=== PATIENT | male | born 1985 | race African-American/Black ===

== ENCOUNTER 2017-08-17 14:22 | Emergency (ER) | payer OTHER ==
[2017-08-17 14:28] VITALS: BP 166/100
[2017-08-17] MEDS ORDERED: DEXAMETHASONE 10 MG/ML VIAL PO STA (15:28)
--- NOTE | 2017-08-17 15:58 | ED Physician Documentation ---
History of Present Illness - Stated complaint Stated Complaint: BILAT EYE PX - Chief complaint Chief Complaint: Heent - Additonal information Additional information: hx from pt healthy 32 male seasonal allergies very severe - congestion eye swelling soa tried dayquil nyquil vitamins lulú tea argon oil s relief Review of Systems Constitutional: denies: Fever Eyes: reports: Other (eyelid swelling) Nose: reports: Congestion Respiratory: reports: Dyspnea Immunocompromised: denies: Immunocompromised PD PAST MEDICAL HISTORY - Past Medical History Past Medical History: Yes Cardiovascular: Hypertension Respiratory: Asthma - Past Surgical History Past Surgical History: No - Present Medications Home Medications: Ambulatory Orders Medication Instructions Recorded Confirmed Albuterol 2 puffs PO PRN PRN 08/17/17 08/17/17 Fluticasone [Flonase] 1 sprays TREVA BID PRN #1 bottle 08/17/17 Loratadine [Claritin] 10 mg PO DAILY PRN #30 tablet 08/17/17 Olopatadine HCl [Patanol] 1 drops OP BID PRN #1 bottle 08/17/17 - Allergies Allergies/Adverse Reactions: Allergies Allergy/AdvReac Type Severity Reaction Status Date / Time peanut Allergy Anaphylaxis Verified 08/17/17 14:28 - Social History Does the pt smoke?: No Smoking Status: Never smoker Does the pt drink ETOH?: Yes ETOH Use: Wine, Beer Does the pt have substance abuse?: No - Immunizations Immunizations are current?: Yes - POLST Patient has POLST: No PD ED PE NORMAL - Vitals Vital signs reviewed: Yes - HEENT HEENT: PERRL (eyelid edema s erythema or infection), Ears normal, Moist mucous membranes, Other (nasal congestion) - Cardiac Cardiac: RRR - Respiratory Respiratory: No respiratory distress, Clear bilaterally, Other (no wheeze) - Derm Derm: Normal color Results - Vitals Vitals: Vital Signs - 24 hr 08/17/17 14:22 Temperature 36.4 C L Heart Rate 83 Respiratory 18 Rate Blood Pressure 166/100 H O2 Saturation 97 Departure - Departure Disposition: 01 Home, Self Care Clinical Impression: Allergic conjunctivitis and rhinitis Qualifiers: Laterality: bilateral Qualified Code(s): H10.13 - Acute atopic conjunctivitis, bilateral; J30.9 - Allergic rhinitis, unspecified; J30.9 - Allergic rhinitis, unspecified Condition: Good Instructions: ED Allergy Seasonal, ED Allergic Conjunctivitis Prescriptions: Fluticasone [Flonase] 1 sprays TREVA BID PRN #1 bottle PRN Reason: allergies Loratadine [Claritin] 10 mg PO DAILY PRN #30 tablet PRN Reason: seasonal allergies Olopatadine HCl [Patanol] 1 drops OP BID PRN #1 bottle PRN Reason: eye allergies Comments: The dose of steroids in the ER should help improve the symptoms quickly. Then maintain with flonase nasal spray, patanol eye drops and claritin Please get your blood pressure rechecked - it was high today
== END 2017-08-17 16:12 | disposition home or self-care (01) ==
LOC: ED 14:22
DX: H10.13 Acute atopic conjunctivitis, bilateral (principal); J30.9 Allergic rhinitis, unspecified; I10 Essential (primary) hypertension
CPT/HCPCS: 99283

== ENCOUNTER 2018-11-08 02:27 | Outpatient (CLI) | payer OTHER | END 2018-11-08 02:28 | disposition critical access hospital (66) | LOC: EMS 02:27 | PROVIDERS: ATTEND Surgery | DX: H57.13 Ocular pain, bilateral (principal); H53.8 Other visual disturbances | CPT/HCPCS: A0425; A0429 ==

== ENCOUNTER 2018-11-08 02:44 | Emergency (ER) | payer OTHER ==
[2018-11-08 02:56] VITALS: BP 191/114
[2018-11-08] MEDS ORDERED: PROPARACAINE 0.5% OPHTH DROPS 15 ML EACHEYE STA (02:56)
--- NOTE | 2018-11-08 03:55 | ED Physician Documentation ---
PD HPI OPHTHO - Stated complaint Stated Complaint: EYE PAIN - Chief complaint Chief Complaint: Heent - History obtained from History obtained from: Patient - History of Present Illness Timing - onset: Enter time (20:00), Today Timing - details: Gradual onset, Still present, Constant Pain level now: 8 Location: Both Quality / character: Burning, Aching Associated symptoms: Redness, Tearing, FB sensation, Photophobia Contributing factors: UV light (welding etc). No: Wears glasses, Wears contacts Similar symptoms before: Has not had sx before Recently seen: Not recently seen - Additional information Additional information: Patient was walking on [employer] all day without eye protection (sunglasses). By 8 PM tonight, noted gradual onset bilateral eye pain, redness, and tearing; symptoms have steadily progressed and pain is now severe. Denies h/o similar symptoms Review of Systems Eyes: reports: Photophobia, Irritation. denies: Loss of vision, Decreased vision Neurologic: denies: Headache PD PAST MEDICAL HISTORY - Past Medical History Cardiovascular: Hypertension Respiratory: Asthma - Past Surgical History Past Surgical History: No - Present Medications Home Medications: Ambulatory Orders Medication Instructions Recorded Confirmed Albuterol 2 puffs PO PRN PRN 08/17/17 08/17/17 Fluticasone [Flonase] 1 sprays TREVA BID PRN #1 bottle 08/17/17 Loratadine [Claritin] 10 mg PO DAILY PRN #30 tablet 08/17/17 Olopatadine HCl [Patanol] 1 drops OP BID PRN #1 bottle 08/17/17 Erythromycin Base [Erythromycin 1 applic EACHEYE BID #1 oint...g. 11/08/18 Ophthalmic Ointment] Oxycodone HCl/Acetaminophen 1 - 2 each PO Q6H PRN #14 tablet 11/08/18 [Percocet 5-325 mg Tablet] - Allergies Allergies/Adverse Reactions: Allergies Allergy/AdvReac Type Severity Reaction Status Date / Time peanut Allergy Anaphylaxis Verified 08/17/17 14:28 - Social History Does the pt smoke?: No Smoking Status: Never smoker Does the pt drink ETOH?: Yes Does the pt have substance abuse?: No - Immunizations Immunizations are current?: Yes - POLST Patient has POLST: No PD ED PE NORMAL - Vitals Vital signs reviewed: Yes - General General: Alert and oriented X 3, Well developed/nourished, Other (appears uncomfortable due to pain; keeps eyes closed for comfort except during exam) - HEENT HEENT: PERRDarrian EOMI PD ED PE EXPANDED - Eyes Eyes: Both eyes, Normal eyelids, Injected conj/sclera, Anterior chambers clear. No: Exudate Results - Vitals Vitals: Oxygen O2 Source Room air PD MEDICAL DECISION MAKING - ED course Complexity details: re-evaluated patient, considered differential, d/w patient Departure - Departure Disposition: 01 Home, Self Care Clinical Impression: Ultraviolet keratitis Condition: Good Instructions: ED Keratitis UV Follow-Up: TREVA Hanson [Provider Group] Prescriptions: Erythromycin Base [Erythromycin Ophthalmic Ointment] 1 applic EACHEYE BID #1 oint...g. Oxycodone HCl/Acetaminophen [Percocet 5-325 mg Tablet] 1 - 2 each PO Q6H PRN #14 tablet PRN Reason: pain Forms: Activity restrictions Discharge Date/Time: 11/08/18 04:57
[2018-11-08] MEDS ORDERED: oxyCODONE 5 MG TABLET PO STA (04:07)
[2018-11-08] MEDS ORDERED: ERYTHROMYCIN OPHTH OINT 1 GM TUBE EACHEYE STA (04:07)
== END 2018-11-08 04:57 | disposition home or self-care (01) ==
LOC: EDUNIT# → ED 02:44
DX: H16.8 Other keratitis (principal); I10 Essential (primary) hypertension
CPT/HCPCS: 99283; A9270; J3490

== ENCOUNTER 2019-05-16 07:00 | Emergency (ER) | payer OTHER ==
[2019-05-16 07:09] VITALS: BP 179/102
--- NOTE | 2019-05-16 07:20 | ED Physician Documentation ---
PD HPI URI - Stated complaint Stated Complaint: COUGH - Chief complaint Chief Complaint: Resp - History obtained from History obtained from: Patient - History of Present Illness Timing - onset: How many days ago (5) Timing duration: Days (5) Timing details: Gradual onset, Still present Associated symptoms: Nasal congestion, Dry cough. No: Ear pain, Sore throat, Chest pain, Dyspnea Contributing factors: Sick contact Improves by: Rest, Medication Similar symptoms before: Diagnosis (bronchitis) Recently seen: Not recently seen - Additional information Additional information: Previously well 34-year-old male has developed a cough and coughing paroxysms over the past 5 days. He is previously had to use an inhaler and does not feel that he needs to use his inhaler now. He is having clear phlegm and he denies any sinus pressure or significant difficulty breathing through his nose. Denies any ear pain. Review of Systems Constitutional: reports: Fever, Fatigue Eyes: denies: Decreased vision Ears: denies: Ear pain Nose: reports: Congestion. denies: Rhinorrhea / runny nose Throat: denies: Sore throat Cardiac: denies: Chest pain / pressure, Palpitations Respiratory: reports: Cough. denies: Dyspnea GI: denies: Vomiting PD PAST MEDICAL HISTORY - Past Medical History Cardiovascular: Hypertension Respiratory: Asthma - Past Surgical History Past Surgical History: No - Present Medications Home Medications: Ambulatory Orders Medication Instructions Recorded Confirmed Albuterol 2 puffs PO PRN PRN 08/17/17 08/17/17 Fluticasone [Flonase] 1 sprays TREVA BID PRN #1 bottle 08/17/17 Loratadine [Claritin] 10 mg PO DAILY PRN #30 tablet 08/17/17 Olopatadine HCl [Patanol] 1 drops OP BID PRN #1 bottle 08/17/17 Erythromycin Base [Erythromycin 1 applic EACHEYE BID #1 oint...g. 11/08/18 Ophthalmic Ointment] Oxycodone HCl/Acetaminophen 1 - 2 each PO Q6H PRN #14 tablet 11/08/18 [Percocet 5-325 mg Tablet] Benzonatate [Tessalon Perle] 100 - 200 mg PO TID PRN #30 capsule 05/16/19 - Allergies Allergies/Adverse Reactions: Allergies Allergy/AdvReac Type Severity Reaction Status Date / Time peanut Allergy Anaphylaxis Verified 08/17/17 14:28 - Social History Does the pt smoke?: No Smoking Status: Never smoker Does the pt drink ETOH?: Yes Does the pt have substance abuse?: No - Immunizations Immunizations are current?: Yes - POLST Patient has POLST: No PD ED PE NORMAL - Vitals Vital signs reviewed: Yes (low grade fever and hypertension ) - General General: Alert and oriented X 3, No acute distress, Well developed/nourished - HEENT HEENT: Atraumatic, PERRL, EOMI, Ears normal, Moist mucous membranes, Pharynx benign, Dentition benign - Neck Neck: Supple, no meningeal sign, No bony TTP - Cardiac Cardiac: RRR, No murmur - Respiratory Respiratory: No respiratory distress, Other (diminished breath sounds) - Abdomen Abdomen: Soft, Non tender - Back Back: No CVA TTP, No spinal TTP - Derm Derm: Normal color, Warm and dry, No rash - Extremities Extremities: No deformity, No edema - Neuro Neuro: Alert and oriented X 3, coal cutter 2-12 intact, No motor deficit, No sensory deficit, Normal speech Eye Opening: Spontaneous Motor: Obeys Commands Verbal: Oriented GCS Score: 15 - Psych Psych: Normal mood, Normal affect Results - Vitals Vitals: Vital Signs - 24 hr 05/16/19 07:06 Temperature 37.6 C H Heart Rate 93 Respiratory 18 Rate Blood Pressure 179/102 H O2 Saturation 96 Oxygen O2 Source Room air PD MEDICAL DECISION MAKING - ED course Complexity details: reviewed old records, considered differential, d/w patient ED course: 34-year-old male with a cough of clear phlegm and low-grade fever does not have evidence of sinusitis or otitis on exam he does have an inhaler at home that he can use if he feels that he needs it. We will provide some cough suppressant and a note for work. Departure - Departure Disposition: 01 Home, Self Care Clinical Impression: Viral URI with cough Condition: Stable Instructions: ED Upper Resp Infec No Abx Tx Follow-Up: TREVA Hanson [Provider Group] Prescriptions: Benzonatate [Tessalon Perle] 100 - 200 mg PO TID PRN #30 capsule PRN Reason: Cough Forms: Activity restrictions
== END 2019-05-16 07:31 | disposition home or self-care (01) ==
LOC: ED 07:00
DX: J06.9 Acute upper respiratory infection, unspecified (principal); J45.909 Unspecified asthma, uncomplicated; I10 Essential (primary) hypertension
CPT/HCPCS: 99282; 99284

== ENCOUNTER 2019-08-05 13:00 | Outpatient (CLI) | payer OTHER ==
[2019-08-05 13:21] LABS: CALCIUM 9.7 mg/dL (8.5-10.3); CREATININE 1.2 mg/dL (0.6-1.2)
== END 2019-08-05 13:01 | disposition home or self-care (01) ==
LOC: LAB 13:00
PROVIDERS: ATTEND Family Medicine
DX: E87.5 Hyperkalemia (principal); E87.0 Hyperosmolality and hypernatremia
CPT/HCPCS: 36415; 80048

== ENCOUNTER 2019-11-18 12:52 | Emergency (ER) | payer OTHER ==
[2019-11-18 13:13] VITALS: BP 167/112
--- NOTE | 2019-11-18 15:08 | ED Physician Documentation ---
History of Present Illness - Stated complaint Stated Complaint: HEAD PX - Chief complaint Chief Complaint: General - History obtained from History obtained from: Patient - History of Present Illness Timing: How many weeks ago (1) Pain level max: 6 Pain level now: 5 - Additonal information Additional information: 34-year-old male states that he has having spasming on the right side of his neck. Worse with movement and better with rest. Took Motrin which did help, does continue to have pain so came in for evaluation. No fevers. No recent trauma. Review of Systems Constitutional: denies: Fever, Chills GI: denies: Vomiting, Diarrhea Skin: denies: Rash Musculoskeletal: denies: Back pain Neurologic: denies: Focal weakness, Numbness, Seizure, Confused, Headache PD PAST MEDICAL HISTORY - Past Medical History Cardiovascular: Hypertension Respiratory: Asthma : Renal insuffiency - Past Surgical History Past Surgical History: No - Present Medications Home Medications: Ambulatory Orders Medication Instructions Recorded Confirmed Bp/Kidney Medication 11/12/19 predniSONE [Deltasone] 60 mg PO DAILY 3 Days #9 tablet 11/12/19 Cyclobenzaprine [Flexeril] 10 mg PO TID PRN #20 tablet 11/18/19 Meloxicam [Mobic] 15 mg PO DAILY PRN #20 tablet 11/18/19 - Allergies Allergies/Adverse Reactions: Allergies Allergy/AdvReac Type Severity Reaction Status Date / Time peanut Allergy Anaphylaxis Verified 11/18/19 13:13 - Social History Does the pt smoke?: No Smoking Status: Never smoker Does the pt drink ETOH?: Yes Does the pt have substance abuse?: No - Immunizations Immunizations are current?: Yes - POLST Patient has POLST: No PD ED PE NORMAL - Vitals Vital signs reviewed: Yes - General General: Alert and oriented X 3, No acute distress, Well developed/nourished - HEENT HEENT: PERRL, Ears normal, Moist mucous membranes, Pharynx benign - Neck Neck: Supple, no meningeal sign, No bony TTP (No midline tender to palpation. There is paraspinal spasm on the right side of the neck.), No JVD, No bruit - Cardiac Cardiac: RRR, Strong equal pulses - Respiratory Respiratory: No respiratory distress, Clear bilaterally - Abdomen Abdomen: Soft, Non tender, Non distended - Back Back: No spinal TTP - Derm Derm: Warm and dry, No rash - Neuro Neuro: Alert and oriented X 3, certified scrum master 2-12 intact, No motor deficit, No sensory deficit, Normal speech Eye Opening: Spontaneous Motor: Obeys Commands Verbal: Oriented GCS Score: 15 - Psych Psych: Normal mood, Normal affect Results - Vitals Vitals: Vital Signs - 24 hr 11/18/19 13:09 Temperature 97.5 C H Heart Rate 75 Respiratory 16 Rate Blood Pressure 167/112 H O2 Saturation 97 Oxygen O2 Source Room air PD MEDICAL DECISION MAKING - ED course Complexity details: considered differential, d/w patient ED course: Patient with right-sided neck paraspinal muscle spasm. Will place on Flexeril for home. He is well-appearing, nontoxic. Afebrile. No evidence of meningitis, carotid dissection, vertebral artery dissection. Normal gait. No neurological deficits. Patient counseled regarding signs and symptoms for which I believe and urgent re-evaluation would be necessary. Patient with good understanding of and agreement to plan and is comfortable going home at this time This document was made in part using voice recognition software. While efforts are made to proofread this document, sound alike and grammatical errors may occur. Normal cerebellar tests Departure - Departure Disposition: Home, Self Care Clinical Impression: Neck muscle spasm Condition: Good Instructions: ED Spasm Neck No Injury Follow-Up: Bri Vasques MD [Primary Care Provider] - Within 1 week Prescriptions: Cyclobenzaprine [Flexeril] 10 mg PO TID PRN #20 tablet PRN Reason: Spasms Meloxicam [Mobic] 15 mg PO DAILY PRN #20 tablet PRN Reason: pain Comments: Continue to gently stretch your neck. This should improve over the next few days. Return if you worsen. It appears to be a muscle spasm today. Do not drive or operate heavy machinery while taking Flexeril. Discharge Date/Time: 11/18/19 15:11
== END 2019-11-18 15:11 | disposition home or self-care (01) ==
LOC: ED 12:52
DX: M62.838 Other muscle spasm (principal); M54.2 Cervicalgia; I10 Essential (primary) hypertension
CPT/HCPCS: 99282; 99284

== ENCOUNTER 2020-01-04 06:06 | Emergency (ER) | payer OTHER ==
[2020-01-04] MEDS ORDERED: MORPHINE 2 MG/ML CARPUJECT IVP STA (06:46)
[2020-01-04] MEDS ORDERED: ONDANSETRON 4 MG/2 ML VIAL IVP STA (06:46)
[2020-01-04] MEDS ORDERED: SODIUM CHLORIDE 0.9% 1,000 ML IV STA (06:46)
[2020-01-04 06:58] LABS: BASOPHILS % (AUTO) 0.3 %; EOSINOPHILS % (AUTO) 0.2 %; HGB - HEMOGLOBIN 14.3 g/dL (14.0-18.0); LYMPHOCYTES % (AUTO) 8.1 %; MEAN CORPUSCULAR HEMOGLOBIN 27.4 pg (27.0-31.0); MEAN CORPUSCULAR HGB CONC 32.8 g/dL (32.0-36.0); MEAN CORPUSCULAR VOLUME 83.7 fL (80.0-94.0); MEAN PLATELET VOLUME 10.7 fL (7.4-11.4); MONOCYTES # (AUTO) 0.9 10^3/uL (0.0-1.0); NEUTROPHILS # (AUTO) 9.8 10^3/uL (1.5-6.6); PLT - PLATELET COUNT 264 10^3/uL (130-450); RED BLOOD COUNT 5.21 10^6/uL (4.70-6.10); RED CELL DISTRIBUTION WIDTH 14.2 % (12.0-15.0); WHITE BLOOD COUNT 11.8 x10^3/uL (4.8-10.8)
[2020-01-04 07:12] LABS: ALBUMIN 4.6 g/dL (3.2-5.5); ALBUMIN/GLOBULIN RATIO 1.5 (1.0-2.2); BILIRUBIN,TOTAL 1.2 mg/dL (0.2-1.0); CALCIUM 9.7 mg/dL (8.5-10.3); CREATININE 1.2 mg/dL (0.6-1.2); TOTAL PROTEIN 7.6 g/dL (6.7-8.2)
--- NOTE | 2020-01-04 07:23 | ED Physician Documentation ---
PD HPI NVD - Stated complaint Stated Complaint: N/V/D - Chief complaint Chief Complaint: Abd Pain - History obtained from History obtained from: Patient - History of Present Illness Timing - onset: Yesterday Timing - duration: Days (1) Timing - details: Abrupt onset, Still present Associated symptoms: Abdominal pain (cramping intermittent), Hematochezia (noted his diarrhea to be red/bloody colored today. Just watery yesterday.), Loss of appetite. No: Fever, Hematemesis, Melena, Near syncope / syncope Contributing factors: Bad food (He ate raw [employer]'s at a restaurant in [place] and thought they tasted bad when he ate them. This was on Friday which is 2 days ago. He developed abdominal cramping nausea vomiting and diarrhea the following day which has persisted into today). No: Sick contact (His girlfriend does not have any similar episode or symptoms. She had not eaten the same as him) Improved by: No: Vomiting Worsened by: Eating Similar symptoms before: Has not had sx before Recently seen: Not recently seen Review of Systems Constitutional: reports: Myalgias. denies: Fever, Chills Nose: denies: Rhinorrhea / runny nose, Congestion Throat: denies: Sore throat Respiratory: denies: Cough GI: reports: Abdominal Pain (lower cramping), Nausea, Vomiting, Diarrhea, Bloody / black stool (today). denies: Abdominal Swelling, Hematemesis PD PAST MEDICAL HISTORY - Past Medical History Past Medical History: Yes Cardiovascular: Hypertension Respiratory: Asthma : Renal insuffiency - Past Surgical History Past Surgical History: No - Present Medications Home Medications: Ambulatory Orders Medication Instructions Recorded Confirmed Bp/Kidney Medication 11/12/19 Azithromycin [Zithromax] 0 mg PO DAILY #4 tablet 01/04/20 Diphenoxylate/Atropine [Lomotil] 1 each PO QID PRN #12 tablet 01/04/20 Hydrocodone/Acetaminophen [[place] 1 each PO Q6H PRN #8 tablet 01/04/20 5-325 Tablet] Ondansetron Odt [Zofran] 4 mg TL Q6H PRN #10 tablet 01/04/20 - Allergies Allergies/Adverse Reactions: Allergies Allergy/AdvReac Type Severity Reaction Status Date / Time peanut Allergy Anaphylaxis Verified 11/18/19 13:13 - Social History Does the pt smoke?: No Smoking Status: Never smoker Does the pt drink ETOH?: Yes Does the pt have substance abuse?: No - Immunizations Immunizations are current?: Yes - POLST Patient has POLST: No PD ED PE NORMAL - Vitals Vital signs reviewed: Yes - General General: Alert and oriented X 3, No acute distress, Well developed/nourished - HEENT HEENT: Pharynx benign. No: Moist mucous membranes - Neck Neck: Supple, no meningeal sign, No adenopathy - Cardiac Cardiac: RRR, No murmur - Respiratory Respiratory: Clear bilaterally - Abdomen Abdomen: Normal bowel sounds, Soft, Non tender, Non distended, No organomegaly - Back Back: No CVA TTP - Derm Derm: Normal color, Warm and dry - Extremities Extremities: No tenderness to palpate, Normal ROM s pain Results - Vitals Vitals: Vital Signs - 24 hr 01/04/20 01/04/20 06:20 09:09 Temperature 36.3 C L 36.6 C Heart Rate 80 84 Respiratory 18 16 Rate Blood Pressure 194/145 H 138/88 H O2 Saturation 99 99 Oxygen O2 Source Room air - Labs Labs: Laboratory Tests 01/04/20 01/04/20 06:50 06:50 WBC 11.8 H RBC 5.21 Hgb 14.3 Hct 43.6 MCV 83.7 MCH 27.4 MCHC 32.8 RDW 14.2 Plt Count 264 MPV 10.7 Neut # (Auto) 9.8 H Lymph # (Auto) 1.0 L [place] # (Auto) 0.9 Eos # (Auto) 0.0 Baso # (Auto) 0.0 Absolute Nucleated RBC 0.00 Nucleated RBC % 0.0 Sodium 137 Potassium 3.8 Chloride 101 Carbon Dioxide 27 Anion Gap 9.0 BUN 12 Creatinine 1.2 Estimated GFR (MDRD) 84 L Glucose 122 H Calcium 9.7 Total Bilirubin 1.2 H AST 27 ALT 20 Alkaline Phosphatase 53 Total Protein 7.6 Albumin 4.6 Globulin 3.0 Albumin/Globulin Ratio 1.5 Lipase 26 PD MEDICAL DECISION MAKING - ED course Complexity details: re-evaluated patient, considered differential (Feeling better with IV fluids and medicine for pain and nausea. Able to take sips. He did not have a bowel movement while here in the ER. Given the report of timing after bad tasting oysters the day before, we can presume food related and empirically treat with Zithromax for presumed vibrio.), d/w patient Departure - Departure Disposition: 01 Home, Self Care Clinical Impression: Gastroenteritis, acute, Food poisoning Condition: Stable Record reviewed to determine appropriate education?: Yes Instructions: ED Food Poison Or Gastroenteritis Follow-Up: Bri Vasques MD [Primary Care Provider] - Prescriptions: Diphenoxylate/Atropine [Lomotil] 1 each PO QID PRN #12 tablet PRN Reason: Diarrhea Hydrocodone/Acetaminophen [[place] 5-325 Tablet] 1 each PO Q6H PRN #8 tablet PRN Reason: Pain Azithromycin [Zithromax] 0 mg PO DAILY #4 tablet Ondansetron Odt [Zofran] 4 mg TL Q6H PRN #10 tablet PRN Reason: Nausea / Vomiting Comments: It is reasonable to assume the symptoms are from the seafood urine eaten the day before. Small frequent fluids and rest today. Start with bland food and increase through the day as you are able. Ondansetron if needed for nausea and Lomotil for diarrhea. Add Tylenol or hydrocodone if needed for cramps and pains. Zithromax daily for 5 days total. You are given the first dose here today so your next prescription dose will be tomorrow. Recheck if not improving well through the day today into the next day or 2 and resolved within 2 to 3 days. Forms: Activity restrictions Discharge Date/Time: 01/04/20 09:11
[2020-01-04] MEDS ORDERED: DIPHENOX/ATROPINE 2.5/0.025 MG TABLET PO STA (07:36)
[2020-01-04] MEDS ORDERED: KETOROLAC 30 MG/ML VIAL IVP STA (07:36)
[2020-01-04] MEDS ORDERED: AZITHROMYCIN 250 MG TABLET PO STA (08:30)
[2020-01-04 09:11] VITALS: BP 138/88
== END 2020-01-04 09:11 | disposition home or self-care (01) ==
LOC: ED 06:06
DX: A05.9 Bacterial foodborne intoxication, unspecified (principal); I10 Essential (primary) hypertension
CPT/HCPCS: 36415; 80053; 83690; 85025; 96374; 96375; 99284; A9270; 80048

== ENCOUNTER 2020-05-15 13:56 | Outpatient (CLI) | payer OTHER ==
--- NOTE | 2020-05-15 19:48 | SLEEP CARE CONSULTATION ---
Information from patient questionnaire entered by Khushboo Loza. I have reviewed and concur with the information entered by Khushboo Loza. This document represents the service I personally performed and the decisions made by me, Alice Bazan MD, [facility]. History of Present Illness Service Date and Time: 05/15/2020 1356 Reason for Visit: New patient Chief Complaint: reports: Snoring, Excessive daytime sleepiness, Observed pauses in breathing, Fatigue Date of Onset: At least 2012 Snores at night: Yes Observed to quit breathing while asleep: Yes Sleeps alone due to snoring: No Number of times waking at night: 1-2 times Reasons for waking at night: reports: Choking Toss, Turn, or Twitch while sleeping: Yes Recalls having dreams: Yes Usually gets out of bed at: 4 AM on work days/7 AM other Feels refreshed in the morning: No Sleepy or fatigued during the day: Yes Takes day naps: No Dreams during day naps: Yes Prior sleep studies: Yes (It was negative) Additional HPI information: I had the pleasure of seeing Mr. Beyer today regarding the possibility of him having a sleep disorder. As you know, he is a 35 year old gentleman who complains of loud snore, observed apneas, persistent fatigue, and excessive daytime sleepiness for the past 7 years. He had a home sleep apnea test (HSAT) then but it was inconclusive because of data loss. The patient tells me that he normally goes to bed around 8 pm, and it takes him approximately just a few minutes to fall asleep. He has been told that he snores loudly and irregularly at night. He has also been observed to stop breathing in his sleep. His can still sleep in the same bed. He can recall waking up on the average of 1 - 2 times during the night. Most of the time he wakes up because of his own snoring, choking, and having to gasp for air. There is a lot of tossing and turning in his sleep. No somniloquy (sleep talking) or somnambulism (sleep walking). Generally he can recall having dreams. In the morning he usually gets up out of the bed around 4 - 7 a.m. not feeling refreshed nor rested. He usually does not have a morning headache. During the day he complains of feeling sleepy and fatigued. His score on [place] Sleepiness Scale is 19 out of 24. He has never fallen asleep while driving but not accident. He usually does not take naps during the day. He has had sleep paralysis. No symptoms of restless leg syndrome. He denies having impaired concentration during the day. 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 Patient is Single and lives in [place]. Have you smoked in the past 12 months: No Caffeine use: Yes Family History Family history of sleep disordered breathing: Yes (Father) Family Hx Sleep Apnea: Father: Sleep apnea - Treated (not obese) Allergies and Home Medications Drug allergies reviewed: Yes (NKDA) Home medication list reviewed: Yes (lisinopril, amlodipine, and chlorthalidone) Review of Systems Cardiovascular: reports: high blood pressure Respiratory: denies: shortness of breath, wheeze, sputum production, chronic cough, other Gastrointestinal: denies: heartburn, difficulty swallowing, nausea, vomitting, diarrhea, abdominal pain, other Urinary: denies: incontinence, frequency, urgency, impotence, other Neurological: denies: headaches, seizure, head trauma, disorientation, speech dysfunction, gait or balance problems, fainting or unconsciousness, other Psychiatric: denies: Attention Deficit Hyperactivity, anxiety, depression, mood disorder, claustrophobia, other Ear/Nose/Throat: reports: wisdom teeth removed Endocrine: denies: thyroid disease, history of goiter, sluggishness, too hot or cold, excessive thirst, increased appetite, increased urination, unexplained weakness, other Musculoskeletal: reports: joint pain Immunologic: reports: sneezing Physical Exam Vital signs obtained and entered by: To minimize the risk of COVID-19 exposure, detailed exam was not performed. Height: 5 ft 11 in Weight: 180 lb Body Mass Index: 25.1 BMI Classification: Overweight Impression and Plan IMPRESSION: 1. Obstructive Sleep Apnea-Hypopnea Syndrome, as suggested by history of loud and irregular snoring, observed cessation of breath while asleep, frequent awakenings during the night, unrefreshed sleep, and daytime hypersomnolence. Untreated obstructive sleep apnea can also cause hypertension. Pathophysiology of sleep-disordered breathing was discussed. I recommend proceeding to polysomnography to confirm the diagnosis and to assess severity. If he has significant sleep disordered breathing, a manual CPAP titration study will also be performed to find the optimal treatment pressure. I informed the patient of what the sleep studies involve and after some discussion, he agreed to proceed. Plan: 1. Schedule polysomnography + manual CPAP titration study. Because the availability of in-laboratory polysomnography is not until July, he would like to have his at [facility] in [place]. I will order one there. 2. Avoid long distance driving or when feeling sleepy. 3. Avoid alcohol, sedative and muscle relaxant around bedtime. 4. Return in 1 to 2 weeks after the study to discuss results and initiate therapy. Visit Type: In Office Time Spent with Patient (minutes): 15 Provider Statement: I spent 100% of the Face to Face Visit with the patient with greater than 50% spent counseling the patient and coordination of care.
== END 2020-05-15 13:57 | disposition home or self-care (01) ==
LOC: SC 13:56
PROVIDERS: ATTEND Internal Medicine Pulmonary Disease
DX: R06.83 Snoring (principal); R06.81 Apnea, not elsewhere classified; G47.8 Other sleep disorders; E66.3 Overweight; Z68.25 Body mass index [BMI] 25.0-25.9, adult
CPT/HCPCS: 99203; 99212

== ENCOUNTER 2020-06-03 13:01 | Outpatient (CLI) | payer OTHER | END 2020-06-03 13:02 | disposition home or self-care (01) | LOC: LAB.N 13:01 | PROVIDERS: ATTEND Internal Medicine Pulmonary Disease | DX: Z01.812 Encounter for preprocedural laboratory examination (principal); Z20.822 Contact with and (suspected) exposure to COVID-19 ==

== ENCOUNTER 2020-06-13 16:36 | Outpatient (CLI) | payer OTHER ==
--- NOTE | 2020-06-13 17:32 | SLEEP CARE CONSULTATION ---
Information from patient questionnaire entered by Khushboo Loza. I have reviewed and concur with the information entered by Khushboo Loza. This document represents the service I personally performed and the decisions made by me, Halle Hansen ARNP. History of Present Illness Service Date and Time: 06/13/2020 163 Initial [place] Sleepiness Scale score: 19 (in 2020) Current [place] Sleepiness Scale score: 15 Additional HPI information: ALE BOWSER returns for follow up and results of the recently performed polysomnography and titration studies completed at [facility]. He was found to have mild obstructive sleep apnea and that his optimal pressure was at 14 cmH2O but a range of 10-[address] also appropriate[address] Dr. Talley follow up with patient yesterday and wrote a prescription for the range of pressure to start his APAP therapy. After some discussion, the patient opted to go with the nasal CPAP therapy. Nasal autoCPAP set at [id number] will be ordered with rationale explained. I explained how CPAP machine works with sample devices RespirQualMetrix Dreamstation and Klypper [id number] and what to expect when using the machine. Using CPAP every night in order to get used to it was emphasized. Patient advised to put CPAP mask on before getting into bed so as not to fall asleep without CPAP. To assist acclimation to CPAP use, it could also be used for a short time during day while reading or watching TV. The patient was instructed to call the CPAP supplier to discuss any mechanical problem that may occur. If the mask given is uncomfortable or is difficult to keep on through the night even with adjustment, contact the CPAP supplier as many will replace with another mask style if notified before 30 days. If snoring or perceives is not getting enough air or too much air from the machine, notify this office. AASM patient education PAP tips reviewed and given to patient. Patient counseled not drink alcohol less than 4 hours before bedtime as it can increase snoring and apnea. Patient was cautioned about risks of drowsy driving until sleepiness symptoms resolve. Sleep Study - Results Type of Sleep Study: Polysomnography Prior sleep studies: Yes (It was negative) Polysomnography/Home Sleep Study results: Interpretation: In-laboratory Attended Nocturnal Polysomnography. The patient h ad normal sleep efficiency. The sleep architecture was relatively normal as well considering the first night effect. Respiratory monitoring showed mild obstructive sleep apnea-hypopnea (AHI 9.2) associated with oxyhemoglobin desaturation and moderate hypoxia (precious oxygen saturation of 80.0%) but not sleep fragmentation. The respiratory events occurred mainly during REM sleep. The patient only slept in supine position during this study. Snoring was light to moderate in intensity. There was no periodic leg movement of sleep. Cardiac rhythm was normal sinus rhythm. No abnormal behavior (parasomnia) observed during the night. Allergies and Home Medications Drug allergies reviewed: Yes (NKDA) Home medication list reviewed: Yes (no changes) Review of Systems Review of systems same as previous: Yes (no changes) Physical Exam Heart Rate: 79 O2 Saturation: 99 Height: 5 ft 11 in Weight: 189 lb Body Mass Index: 26.3 BMI Classification: Overweight Impression and Plan 1. Obstructive Sleep Apnea-Hypopnea Syndrome, mild, with lowest oxygen saturation of 80%. Obviously this is the cause of the patients symptoms of unrefreshed sleep, and excessive daytime sleepiness. Positive pressure therapy could benefit his hypertension. As mentioned above, the patient will be started on nasal autoCPAP therapy with pressure set at 10-15 cmH2O. Compliance guidelines also reviewed. A copy of compliance guidelines will be given for reference at check out. Because the apnea is more severe supine, I instructed to avoid sleeping supine using pillow positioning until able to start CPAP use. * Nasal auto CPAP therapy, pressure at 10-15 cm H2O. * Attempt to lose weight. * Avoid alcohol consumption near bedtime. * Avoid supine sleep until using CPAP. * The patient is again cautioned about driving until sleepiness completely resolves. * Return one month after CPAP obtained. I will assess response to therapy and compliance at that time. Visit Type: In Office Time Spent with Patient (minutes): 20 Provider Statement: I spent 100% of the Face to Face Visit with the patient with greater than 50% spent counseling the patient and coordination of care.
--- OUTSIDE RECORDS SUMMARY | 2020-06-14 04:53 | EXTERNAL MEDICAL SUMMARY RPT | Continuity of Care Document ---
:1985 Demographics Phone Unavailable Preferred Language Unknown Marital Status Unknown Oriental Orthodox Affiliation Unknown Race Unknown Ethnic Group Unknown Author Organization [place] Address [address] [place] [address] Phone Care Team Providers Name Role Phone Provider Unavailable Unavailable Layo Unavailable Unavailable Problems date description facility 2020-05-15 13:[address] [facility] 2020-05-15 13:56 OTHER SLEEP DISORDERS [facility] 2020-05-15 13:56 APNEA, NOT ELSEWHERE CLASSIFIED [facility] 2020-05-15 13:56 SNORING [facility] 2020-05-15 13:56 BODY MASS INDEX [BMI] 25.0-25.9, [facility] ADULT Allergies date description facility NO KNOWN ENVIRONMENTAL ALLERGIES [facility] SULFA ANTIBIOTICS [facility] PENICILLINS [facility] SULFA (SULFONAMIDE ANTIBIOTICS) [facility] NO KNOWN ALLERGIES [facility] [place] ACETAZOLAMIDE [facility] [place] METFORMIN [facility] [place] peanut [facility] Results test status date ordered by attending specimen camille e null F 2020-06-03 CHARIS.01 Hannyj [facility] 20 22-06-01 13:11:00 13:11:00 facility observation status value reference units lab [facility] mal [facility] NEGATIVE unknown See [facility] s eparate report - Report scanned to Patient' s EMR. Testing perform[facility] Social History date description facility [id number]
== END 2020-06-13 16:37 | disposition home or self-care (01) ==
LOC: SC 16:36
PROVIDERS: ATTEND Nurse Practitioner Family
DX: G47.33 Obstructive sleep apnea (adult) (pediatric) (principal); E66.3 Overweight; Z68.26 Body mass index [BMI] 26.0-26.9, adult
CPT/HCPCS: 99212; 99213

== ENCOUNTER 2020-08-07 13:26 | Outpatient (CLI) | payer OTHER ==
--- NOTE | 2020-08-07 14:02 | SLEEP CARE CONSULTATION ---
Information from patient questionnaire entered by Khushboo Loza. I have reviewed and concur with the information entered by Khushboo Loza. This document represents the service I personally performed and the decisions made by me, Alice Bazan MD, [facility]. History of Present Illness Service Date and Time: 08/07/2020 1326 Previous diagnosis: Mild, Obstructive Sleep Apnea-Hypopnea Syndrome AHI: 9.2 Reason for follow up: first compliance Equipment type: CPAP Equipment obtained from: Other ([employer]) Mask style: Nasal Prior sleep studies: Yes Year and Where: 2020 [facility] Type of Sleep Study: Polysomnography HPI additional information: HPI: Mr. Beyer was diagnosed to have mild obstructive sleep apnea-hypopnea syndrome and returns today for follow up of CPAP therapy. The patient purchased the device from [employer] and was fitted with a nasal mask. He uses the device almost nightly and all through the night. The compliance report shows that he uses the device 21 nights out of the past 30 nights, averaging 5.1 hours a night. He complains of nasal congestion but no particular problem with the device such as soreness on the face, dry nose, epistaxis, or headache. He thinks that the pressure of 10 - 15 cmH2O is comfortable. On the CPAP therapy he notices improvement in his sleep quality, and that he wakes up feeling fresher in the morning and more awake/alert during the day. His notices no snore at all. [place] Sleepiness Scale score is 14. The average residual AHI is 2.5 ; and average air leak is 0.5 L/minute. The 90th percentile pressure is 11.7 CPAP Compliance Data - Data Reviewed with Patient Average duration of nightly device use: 5 h 9 min Compliance rate %: 57 Current pressure setting (cmH2O): 10-15 Average residual AHI: 2.5 Subjective Missed days of use due to: reports: family emergency, illness Patient concerns: reports: nasal congestion Initial [place] Sleepiness Scale score: 19 (in 2019) Current [place] Sleepiness Scale score: 14 Allergies and Home Medications Drug allergies reviewed: Yes Home medication list reviewed: Yes Review of Systems Review of systems same as previous: Yes Physical Exam Height: 5 ft 11 in Weight: 185 lb Body Mass Index: 25.7 BMI Classification: Overweight Impression and Plan IMPRESSION: 1. Obstructive Sleep Apnea-Hypopnea Syndrome, mild, with the patient doing well on nasal CPAP therapy. He has decent compliance and significant clinical improvement. The current pressure appears effective and comfortable. Overall, he is very satisfied with treatment and plans to continue with it long- term. No adjustment is necessary today. PLAN: 1. Continue with autoCPAP set at 10 - 15 cmH2O. 2. Try a Respironics DreamWear nasal cushion mask or ResMed N30i mask. 3. Return for follow up in a year or earlier if there is any problem. Visit Type: In Office Time Spent with Patient (minutes): 15 Provider Statement: I spent 100% of the Face to Face Visit with the patient with greater than 50% spent counseling the patient and coordination of care.
== END 2020-08-07 13:27 | disposition home or self-care (01) ==
LOC: SC 13:26
PROVIDERS: ATTEND Internal Medicine Pulmonary Disease
DX: G47.33 Obstructive sleep apnea (adult) (pediatric) (principal); E66.3 Overweight; Z68.25 Body mass index [BMI] 25.0-25.9, adult
CPT/HCPCS: 99212